=== PATIENT | female | born 1955 | race Caucasian/White ===

== ENCOUNTER 2016-09-12 01:07 | Inpatient (IN) | payer OTHER ==
[~2016-09-12] VITALS: Ht 162.6 cm; Wt 72.6 kg
[~2016-09-12 01:07] MED LIST: DIOVAN40 MG PO; METOPROLOL SUCC50 M2 PO; ZOLOFT50 M1 PO
--- NOTE | 2016-09-12 09:13 | Admission Core Measures ---
Admission Meds I reviewed the following Meds: Current Medications Sig/Kd Start time Last Medication Dose Stop Time Status Admin Cefazolin Sodium 2,000 MG ONCE 09/12 0000 NR (Kefzol-Ancef Inj) 09/12 2359 Losartan Potassium 50 MG DAILY 09/12 1000 AC (Cozaar) Metoprolol Succinate 50 MG DAILY 09/12 1000 AC (Toprol Xl) Sertraline HCl 50 MG DAILY 09/12 1000 AC (Zoloft) Acute Coronary Syndrome Inclusion Criteria ACS Diagnosis No Inpatient Core Measures LDL Reminder: If No, please order W/I first 24hr of stay Congestive Heart Failure Inclusion Criteria CHF Diagnosis No Cerebrovascular accident Inclusion Criteria CVA/TIA Diagnosis No Inpatient Core Measures Bedside Swallow Eval Reminder: If BSE failed, place ST order Antithrombotic Reminder: Order Antithrombotic Medication by end of day 2 Antithrombotic Reminder: Document Reason Antithrombotic Not ordered by end of day 2 AFIB/Flutter Reminder: If Present, add to problem list AFIB/Flutter Reminder: Order Anticoag Medication for pts with AFIB/Flutter Atherosclerosis Reminder: If Present, add to problem list LDL Reminder: If No, please order W/I first 24hr of stay PT Order Reminder: If No, please order Venous thromboembolism Inpatient Core Measures VTE Risk Factors: Surgery No [facility] VTE prophylaxis d/t No contraindications No VTE Pharm Prophylaxis d/t No contraindications Inclusion Criteria - Per Current guidelines, there needs to be overlap - treatment for the first 5 days of Warfarin therapy. - Parenteral Anticoagulation (IV or SC) needs to be - given along with Warfarin therapy. VTE Diagnosis No VTE Type NONE VTE Confirmed by (Test) NONE Problem List As ranked by this Provider includes Assessment & Plan 1. Primary osteoarthritis of right hip HOME MEDS Home Med List Metoprolol Succinate 50 MG TAB.ER.24H 1 TAB PO DAILY HTN (Reported) Sertraline HCl (Zoloft) 50 MG TABLET 1 TAB PO DAILY DEPRESSION (Reported) Valsartan (Diovan) 40 MG TABLET 1 TAB PO DAILY HTN (Reported)
--- NOTE | 2016-09-12 09:22 | Surg Short-stay <48hrs Dis Sum ---
Visit Information Visit Dates Admission Date: 09/12/16 Discharge Date: 09/12/16 Surgical Short Stay DC Summary Admission Diagnosis: Right hip primary osteoarthritis Final Diagnosis: same sp R ELIO Procedure(s): Right ELIO Summary/Significant Findings: Patient was admitted to the hospital for an elective total joint replacement. The procedure was tolerated well and patient was transferred to a general surgical floor. Diet was advanced and tolerated, and the patient voided spontaneously. The patient was evaluated and treated by physical therapy. At the time of hospital discharge, the vital signs were stable, neurovascular status was intact, and pain was controlled with the use of oral pain medications. Condition at Discharge: stable Discharge Disposition: home health services Discharge instructions provided to patient/family: Yes Post discharge follow-up plan: Follow up with Dr. Bhakta in 6 weeks from date of surgery. Please call his office to arrange and/or confirm this appointment
[2016-09-12] MEDS ORDERED: COLACE100 M1 PO (09:24)
[2016-09-12] MEDS ORDERED: MS CONTIN15 M2 PO (09:24)
[2016-09-12] MEDS ORDERED: ASPIRIN EC325 M2 PO (09:24)
[2016-09-12] MEDS ORDERED: DILAUDID2 M1 PO (09:24)
[2016-09-12] MEDS ORDERED: MIRALAX17 G1 PO (09:24)
--- NOTE | 2016-09-12 09:59 | RADIOLOGY REPORT ---
EXAMINATION: XR HIP, RIGHT CLINICAL INFORMATION: Status post right hip replacement. COMPARISON: None TECHNIQUE: Two views of the right hip. FINDINGS: There is total right hip arthroplasty with prosthetic components in satisfactory alignment. No soft tissue abnormality seen. IMPRESSION: Total right hip arthroplasty in satisfactory alignment.
[2016-09-12 11:37] VITALS: BP 130/80
--- NOTE | 2016-09-12 14:07 | NUR ---
PT ARRIVED TO FLOOR FROM PACU AT 1135 VIA STRETCHER. A&OX3, ROOM AIR, DENIES PAIN/DISCOMFORT. VITALS BP 130/80, PULSE 54, 96% RA, RR 16, TEMP 97.8. PHYSICAL THERAPY AT BEDSIDE TO WORK WITH PATIENT. ORTHOSTATIC VITAL SIGNS LYING 130/80 PULSE 54, SITTING 132/82 PULSE 60, STANDING 138/82 PULSE 68. ASSIST X1 WITH ROLLING WALKER. SAFETY MAINTAINED, NEEDS IN REACH.
--- NOTE | 2016-09-12 14:44 | PN- Orthopedic ---
Subjective Subjective: Patient received on general surgical floor without complaints. States that her pain is 1/10 presently. She denies chest pain, shortness of breath and difficulty breathing. She denies nausea and vomitting. She has been voiding. She ambulated and cleared pt. Objective Vital Signs and I&Os Vital Signs Date Time Temp Pulse Resp B/P B/P Pulse O2 O2 Flow FiO2 Mean Ox Delivery Rate 09/12 1137 97.8 54 16 130/80 96 Room Air Intake & Output 09/12 1600 09/12 0800 09/12 0000 09/11 1600 09/11 0800 09/11 0000 Intake Total Output Total Balance Patient 160 lb Weight Physical Exam: General: Alert and oriented x3, no acute distress Cards: RRR, s1s2 Pulm: CTA bilaterally Abdomen: Soft, non-tender Extremities: Moves all extremities, distal sensation intact, skin warm and well perfused, bilateral calves soft and non-tender. Surgical site: Dressing dry and intact. Thigh compartment soft. Assessment/Plan Assessment/Plan This is a 61 year old female, POD 0, s/p R THR -ASA 325 bid for dvt ppx -OOB , WBAT -MS contin/dilaudid for po pain control -Diet as tolerated -ABX ppx: Ancef 2 grams x 2 additional doses while in house -Dispo planning: home today with services -Will d/w Dr. Bhakta Core Measures/Miscellaneous Venous Thromboembolism VTE Risk Factors: Age > 40, Surgery VTE Contraindications: No Contraindications VTE Diagnosis: No VTE Type: NONE VTE Confirmed by (Test): NONE Beta Moises Is Beta Moises a Home Med? No Antibiotics Is Patient on Antibiotics? Yes
[2016-09-12 14:50] VITALS: BP 118/60
--- NOTE | 2016-09-12 18:09 | Operative Report ---
Operative/Inv Procedure Report Surgery Date: 09/12/16 Name of Procedure: Right total hip replacement Pre-Operative Diagnosis: Primary right hip DJD Post-Operative Diagnosis: Same Estimated Blood Loss: 250 Surgeon/Commercial Coordinator: SKYE BABCOCK,CY Hodgson Anesthesia: general endotracheal tube Operative/Procedure Note Note: Description of Procedure: The patient was taken to the operating room and positively identified. After induction of general anesthesia and administration of appropriate pre-operative antibiotics, the patient was positioned supine on the operating room table and all bony prominences were well padded. After performing a surgical timeout, the right lower extremity was prepped and draped in the usual sterile fashion. A direct anterior approach was made to the right hip. The incision was carried sharply through superficial soft tissues to the level of the fascia. Meticulous hemostasis was maintained with Bovie electocautery. The fascia over the tensor fascia shania muscle was opened sharply and the interval between the TFL and the sartorius was entered bluntly taking care to stay lateral to the lateral femoral cutaneous nerve. Retractors were placed around the femoral neck and the pericapsular fat was identified. The ascending branches of the lateral femoral circumflex vessels were identified and carefully coagulated. The pericapsular fat and anterior capsule were then resected. A napkin ring osteotomy was performed and the femoral head was removed without difficulty. Attention was then turned to the acetabulum. After appropriate placement of retractors, the acetabulum was exposed. Soft tissue was cleaned from the acetabular margin and notch. Overhanging osteophytes were removed and the teardrop was exposed. The acetabulum was then sequentially reamed to accept a 52 mm Yoanna Tritanium hemispherical solid back shell. This was impacted into place in the appropriate position and fitted with a 32 mm Trident X3 zero degree polyethylene insert. Attention was then turned to the femur. After performing the appropriate ligament releases, the proximal femur was exposed. It was then sequentially broached to accept a size 3 [place] Accolade 2 stem. This was trialed for leg length and stability. The trial component was removed and the final component was impacted into place. The trunnion was carefully cleaned and fit with a 32 mm, +4 Biolox delta ceramic femoral head. The hip was reduced and put through a full range of motion and found to be stable. The articular space was then irrigated with sterile saline. The periarticular soft tissues were infilitrated with Marcaine. The fascial layer was closed with interrupted #1 vicryl suture and the skin was re-approximated with interrupted 2 -0 vicryl. The skin was closed with a running 3-0 V-Lock suture. Steri-strips and a sterile dressing were applied. The patient was awakened and taken to the recovery room in satisfactory condition.
== END 2016-09-12 15:00 | disposition home health service (06) | DRG 470 ==
LOC: SDA 01:07 → ENRESERV 10:07 → ENTRNSPT 10:46 → EDTRNSPT 10:49 → CMPTRNSPT 11:26 → 2NA 11:32
PROVIDERS: ADMIT Orthopaedic Surgery
PROC: 0SR904A Replacement of Right Hip Joint with Ceramic on Polyethylene Synthetic Substitute, Uncemented, Open Approach (ICD-10-PCS; principal; 2016-09-12)
DX: M16.11 Unilateral primary osteoarthritis, right hip (principal); I10 Essential (primary) hypertension; M85.80 Other specified disorders of bone density and structure, unspecified site; E78.2 Mixed hyperlipidemia; F41.9 Anxiety disorder, unspecified; K57.90 Diverticulosis of intestine, part unspecified, without perforation or abscess without bleeding; R91.8 Other nonspecific abnormal finding of lung field; R00.2 Palpitations; I71.4 Abdominal aortic aneurysm, without rupture; Z87.891 Personal history of nicotine dependence
CPT/HCPCS: 2NAP; 73502-RT; 97110-GO; 97116-GO; 97161-GP; 97530-GO; J0690; J0735; J1200; J2405; J2550; J7042